=== PATIENT | female | born 1990 | race Caucasian/White ===

== ENCOUNTER 2022-09-28 23:24 | Emergency (ER) | payer MEDICAID, OTHER ==
[2022-09-29 00:48] LABS: ESTIMATED GFR 87 mL/min (>60)
[2022-09-29] MEDS ORDERED: Potassium Chloride 20 MEQ Tab.ER PO ONE (00:53)
[2022-09-29] MEDS ORDERED: LORazepam 0.5 MG Tab PO ONE (00:54)
== END 2022-09-29 01:39 | disposition home or self-care (01) ==
LOC: JP.ED 23:24
DX: F41.9 Anxiety disorder, unspecified (principal); E87.6 Hypokalemia; R06.4 Hyperventilation; Z72.0 Tobacco use
CPT/HCPCS: 36415; 36600; 71046; 71046-26; 80048; 82803; 85025; 86140; 99283; 99285; A9270-GY